=== PATIENT | male | born 1980 | race Caucasian/White ===

== ENCOUNTER 2019-12-13 20:08 | Emergency (ER) | payer BC ==
--- OUTSIDE RECORDS SUMMARY | 2019-12-13 20:09 | XMS REPORT | Continuity of Care Document ---
:1980 Author Organization [facility] t Address [address] [place] [address] Care Team Providers Name Role Phone Unavailable Unavailable Unavailable Problems Condition Condition Condition Status Onset Resolution Last Treating Co mments Source Name Details Category Date Date Treatment Clinician Date Tobacco Tobacco Diagnosis Active [facility] - disorder, disorder, Hesham vlad continuous continuous l [facility] Body mass Body mass Diagnosis Active [facility] index index [facility] - (BMI) of (BMI) of Memori a 40.1 to 40.1 to l 44.9 in 44.9 in [facility] adult [facility] Clinics Wound of Wound of Diagnosis Active [facility] right right [facility] - lower lower Memoria extremity, extremity, l initial initial Outpati encounter encounter ent Clinics HSV HSV Diagnosis Active [facility] (herpes (herpes [facility] - simplex simplex Memoria virus) virus) l infection infection Outp ati ent Clinics Elevated Elevated Diagnosis Active [facility] LFTs LFTs [facility] ent Clinics Delayed Delayed Diagnosis Active [facility] wound wound [facility] - healing healing [facility] l [facility] Essential Essential Diagnosis Active [facility] hypertensi hypertensi Inez kes - on on Memoria l [facility] ent Clinics Allergies, Adverse Reactions, Alerts Allergy Allergy Status Severity Reaction(s) Onset Inactive Treating Comm ents Source Name Type Date Date Clinician Hydrocod Adverse Active Info Not [facility] one-Acet Reaction Available Anitra es - aminophe Mem[facility] n l [facility] ent Clinics Medications Ordered Filled Start Stop Current Ordering Indication Dosage Frequency Signature Comments Components Source Medication Medication Date Date Medication? Clinician (SIG) Name Name Lisinopril Lisinopril Yes Dionicio [address] [facility] ent Clinics Procedures This patient has no known procedures. Encounters Start End Encounter Admission Attending Care Care Encounter Source Date/Time Date/Time Type Type Clinicians Facility Department ID 2019-10-30 2019-10-30 [facility] [id number] [facility] 10:[facility]:00 10:00:00 [place] [employer] [facility] Medicine l Medicine Outpati ent Clinics 2019-08-29 2019-08-29 [facility] [id number] [address] 09:15:00 09:15:00 [place] [employer] [facility] Medicine l Medicine Outpati ent Clinics 2019-08-09 2019-08-09 [facility] [id number] [facility] 10:15:00 10:15:00 [place] [employer] [facility] Medicine l Medicine Outpati ent Clinics 2019-05-12 2019-05-12 [facility] [id number] [address] 12:07:00 12:07:00 t [employer] [facility] Medicine l Medicine Outpati ent Clinics 2019-05-08 2019-05-08 [facility] [id number] 13:30:00 13:30:00 t [employer] [facility] Medicine l Medicine Outpati ent Clinics 2019-02-09 2019-02-09 [facility] [id number] 15:15:00 15:15:00 t [employer] [employer] [facility] Medicine l Medicine Outpati ent Clinics 2019-02-01 2019-02-01 [facility] [id number] [address] 15:11:00 15:11:00 t [employer] [employer] [facility] Medicine l Medicine Outpati ent Clinics 2019-01-05 2019-01-05 [facility] [id number] [facility] 11:15:00 11:15:00 [place] [employer] [facility] Medicine l Medicine Outpati ent Clinics 2018-11-09 2018-11-09 [facility] [id number] [address] 16:00:00 16:00:00 t [employer] [employer] [facility] Medicine l Medicine Outpati ent Clinics 2018-08-08 2018-08-08 [facility] [id number] [address] 15:15:00 15:15:[address] [place] [address] [facility] 2018-07-07 2018-07-07 [facility] [id number] [address] 14:15:00 14:15:00 [employer] [facility] 2018-06-16 2018-06-16 [facility] [id number] 14:15:00 14:15:00 [facility] ent Clinics Results This patient has no known results.
--- OUTSIDE RECORDS SUMMARY | 2019-12-13 20:09 | XMS REPORT ---
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 [id number] 10 MG Orally Once Active 1 tablet a day Results No Known Results Summary Purpose e[employer] Submission
--- NOTE | 2019-12-13 22:05 | ER ---
Nurse's Notes [facility] Name: Kvng Martin Age: 39 yrs Sex: Male : 1980 Arrival Date: 12/13/2019 Time: 20:09 Bed 30 Private MD: Diagnosis: Scalp Mass Presentation: 12/12 20:18 Chief complaint: Patient states: Noticed tender lump to right posterior scalp 3 days ll1 ago. Noticed he can feel his heartbeat in it. No trauma or falls. No N/V/D. No fever. Coronavirus screen: Client denies travel out of the [place] in the last 14 days. At this time, the client does not indicate any symptoms associated with coronavirus-19. Ebola Screen: Patient denies travel to an Ebola-affected area in the 21 days before illness onset. Initial Sepsis Screen: Does the patient meet any 2 criteria? No. Patient's initial sepsis screen is negative. Risk Assessment: Do you want to hurt yourself or someone else? Patient reports no desire to harm self or others. Onset of symptoms was December 11, 2019. 20:18 Method Of Arrival: Ambulatory ll1 20:18 Acuity: CALEB 3 ll1 Historical: - Allergies: 20:22 Codeine; ll1 - PMHx: 20:22 Hypertension; venous ulcer; ll1 - Immunization history:: Flu vaccine is not up to date. - Social history:: Smoking status: Patient reports the use of cigarette tobacco products, smokes one-half pack cigarettes per day, Patient uses alcohol, only on a social basis. Patient/guardian denies using street drugs. Vital Signs: 20:18 BP 130 / 72; Pulse 77; Resp 18; Temp 98.7; Pulse Ox 99% ; Pain 1/10; ll1 ED Course: 20:00 Patient has correct armband on for positive identification. Bed in low position. Call sg light in reach. Pulse ox on. NIBP on. 20:09 Patient arrived in ED. cl3 20:20 Triage completed. ll1 20:22 Arm band placed on. ll1 21:21 Frank Hernandez PA is PHCP. lana 21:21 Colten Elam MD is Attending Physician. luis 21:23 Aaron Mccann RN is Primary Nurse. sg 22:00 No provider procedures requiring assistance completed. IV discontinued, intact, sg bleeding controlled, No redness/swelling at site. Pressure dressing applied. Administered Medications: No medications were administered Outcome: 22:02 Medical screen evaluation completed per provider. Patient declined treatment. sg 22:02 Condition: stable 22:02 Instructed on follow up and referral plans. Demonstrated understanding of instructions. 22:04 Discharge ordered by . lana 22:10 Patient left the ED. sg Signatures: Aaron Mccann RN RN Frank Pennington PA PA jmm Lewis, Charde cl3 Clifton Pineda RN RN ll1
--- NOTE | 2019-12-13 22:05 | EDPHYS ---
Physician Documentation [facility] Name: Kvng Martin Age: 39 yrs Sex: Male : 1980 Arrival Date: 12/13/2019 Time: 20:09 Bed 30 Private MD: ED Physician Colten Elam HPI: 12/12 21:59 This 39 yrs old Male presents to ER via Ambulatory with complaints of Knot On jmm Back Of Head. 21:59 The patient complains of pain to the right occipital area. Onset: The symptoms/episode jmm began/occurred gradually. Associated signs and symptoms: Pertinent negatives: fever, vomiting. This is a 39 year old male with a history of htn that presents to the ED with complaints of swelling to the right parietal scalp. Patient concerned he may have an aneurysm. Denies vomiting, seizure, fever. . Historical: - Allergies: 20:22 Codeine; ll1 - PMHx: 20:22 Hypertension; venous ulcer; ll1 - Immunization history:: Flu vaccine is not up to date. - Social history:: Smoking status: Patient reports the use of cigarette tobacco products, smokes one-half pack cigarettes per day, Patient uses alcohol, only on a social basis. Patient/guardian denies using street drugs. ROS: 21:59 Constitutional: Negative for fever, chills, and weight loss, Cardiovascular: Negative jmm for chest pain, palpitations, and edema, Respiratory: Negative for shortness of breath, cough, wheezing, and pleuritic chest pain. 21:59 Neuro: Positive for headache. 21:59 All other systems are negative. Exam: 21:59 Constitutional: This is a well developed, well nourished patient who is awake, alert, jmm and in no acute distress. 21:59 Eyes: EOMI, no conjunctival erythema appreciated ENT: Moist Mucus Membranes Neck: Trachea midline, Supple Chest/axilla: Normal chest wall appearance and motion. Cardiovascular: Regular rate and rhythm. No edema appreciated Respiratory: Normal respirations, no respiratory distress appreciated Abdomen/GI: Non distended, soft Back: Normal ROM Skin: General appearance color normal MS/ Extremity: Moves all extremities, no obvious deformities appreciated, no edema noted to the lower extremities Neuro: Awake and alert, normal gait Psych: Behavior is normal, Mood is normal, Patient is cooperative and pleasant 21:59 Head/face: cyst like mass appreciated to the right parietal scalp, no surrounding erythema, no induration is appreciated. . Vital Signs: 20:18 BP 130 / 72; Pulse 77; Resp 18; Temp 98.7; Pulse Ox 99% ; Pain 1/10; ll1 MDM: 21:22 Patient medically screened. [facility] 22:04 Data reviewed: vital signs, nurses notes. Refusal of service: The patient/guardian luisosman displays adequate decision making capability and despite a detailed discussion of alternatives, benefits, risks, and consequences refuses: CT Scan. Medical screen evaluation completed. EMTALA emergency medical condition absent. Administered Medications: No medications were administered Disposition: 22:04 Headache. [place] 12/13 17:01 Co-signature as Attending Physician, Colten Elam MD I agree with the assessment and [facility] plan of care. Disposition: 12/13/19 22:04 Discharged to Home as Medical Screen. Impression: Scalp Mass. - Condition is Stable. - Medication Reconciliation Form, Thank You Letter, Antibiotic Education, Prescription Opioid Use form. - Follow up: Private Physician; When: 2 - 3 days; Reason: Recheck today's complaints, Continuance of care, Re-evaluation by your physician. Signatures: Aaron Mccann RN RN Colten Painter MD MD cha Mickail, Joel, PA PA jm Clifton Pineda RN RN ll1 Corrections: (The following items were deleted from the chart) 12/12 22:10 22:04 12/13/2019 22:04 Discharged to Home as Medical Screen. Impression: Scalp Mass. sg Condition is Stable. Forms are Medication Reconciliation Form, Thank You Letter, Antibiotic Education, Prescription Opioid Use. Follow up: Private Physician; When: 2 - 3 days; Reason: Recheck today's complaints, Continuance of care, Re-evaluation by your physician. lana
[2019-12-15 23:55] VITALS: BP 130/72; TEMP 98.7; O2SAT 99
== END 2019-12-13 22:10 | disposition home or self-care (01) ==
LOC: ER 20:08
DX: R22.0 Localized swelling, mass and lump, head (principal); Z88.6 Allergy status to analgesic agent; F17.210 Nicotine dependence, cigarettes, uncomplicated
CPT/HCPCS: 99283

== ENCOUNTER 2020-09-25 13:50 | Emergency (ER) | payer BC ==
--- OUTSIDE RECORDS SUMMARY | 2020-09-25 13:54 | XMS REPORT | Continuity of Care Document ---
:1980 Author Organization [facility] t Address [address] [place] [address] Care Team Providers Name Role Phone Unavailable Unavailable Unavailable Problems This patient has no known problems. Allergies, Adverse Reactions, Alerts Allergy Allergy Status Severity Reaction(s) Onset Inactive Treating Comm ents Source Name Type Date Date Clinician Hydrocod Adverse Active Info Not [facility] one-Acet Reaction Available Anitra es - aminophe [facility] l Outpat[facility] ent Clinics Medications Ordered Filled Start Stop Current Ordering Indication Dosage Frequency Signature Comments Components Source Medication Medication Date Date Medication? Clinician (SIG) Name Name Lisinopril Lisinopril Yes Dionicio [address] [facility] Procedures This patient has no known procedures. Encounters Start End Encounter Admission Attending Care Care Encounter Source Date/Time Date/Time Type Type Clinicians Facility Department ID 2020-09-02 2020-09-02 Outpatient [facility] [id number] [facility] 2020-08-08 2020-08-08 Outpatient [facility] [id number] [facility] 2020 2020 Outpatient [facility] [id number] [facility] 2020-02-01 2020-02-01 [facility] [id number] [facility]00 [facility] l Outpati ent Clinics 2019-10-30 2019-10-30 [facility] [id number] 10:00:00 10:00:00 [place] [employer] [facility] Medicine l Medicine Outpati ent Clinics 2019-08-29 2019-08-29 [facility] [id number] [facility] 09:15:00 09:15:00 t [place] [employer] [facility] Medicine l Medicine Outpati ent Clinics 2019-08-09 2019-08-09 [facility] [id number] [facility] 10:15:00 10:15:00 t [employer] [facility] Medicine l Medicine Outpati ent Clinics 2019-05-12 2019-05-12 [facility] [id number] 12:07:00 12:07:00 t [place] [employer] [facility] Medicine l Medicine Outpati ent Clinics 2019-05-08 2019-05-08 [facility] [id number] [facility] 13[facility]30:00 13:30:00 t [place] [employer] [facility] Medicine l Medicine Outpati ent Clinics 2019-02-09 2019-02-09 [facility] [id number] 15:15:00 15:15:00 t [employer] [facility] [employer] [facility] Medicine l Medicine Outpati ent Clinics 2019-02-01 2019-02-01 [facility] [id number] 15:11:00 15:11:00 t [place] [employer] [facility] Medicine l Medicine Outpati ent Clinics 2019-01-05 2019-01-05 [facility] [id number] 11:15:00 11:15:00 t [place] [employer] [facility] Medicine l Medicine Outpati ent Clinics 2018-11-09 2018-11-09 [facility] [id number] [facility] 16:00:00 16:00:00 t [place] [employer] [facility] Outpati ent Clinics 2018-08-08 2018-08-08 [facility] [id number] 15:15:00 15:15:00 t [employer] [facility] Outpati ent Clinics 2018-07-07 2018-07-07 Outpatient [facility] [id number] 14:15:00 14:15:00 t [employer] [facility] Outpati ent Clinics 2018-06-16 2018-06-16 Outpatient [facility] [id number] [facility] 14:15:00 14:15:00 t [employer] [facility] Results This patient has no known results."
--- NOTE | 2020-09-25 16:40 | RAD REPORT ---
EXAM DESCRIPTION: US - Extremity Venous Uni Ltd - 09/25/2020 4:23 pm CLINICAL HISTORY: Pain;Swelling Leg swelling and edema. COMPARISON: Extremity Venous Uni Ltd dated 09/02/2018 FINDINGS: Left lower extremity venous system was interrogated with Doppler technique. Normal flow, c ompressibility and augmentation was noted. There is no DVT present. IMPRESSION: No evidence of left lower extremity deep venous thrombosis.
--- NOTE | 2020-09-25 16:57 | ER ---
Nurse's Notes [facility] Name: Kvng Martin Age: 40 yrs Sex: Male : 1980 Arrival Date: 09/25/2020 Time: 14:02 Bed 17 Private MD: Diagnosis: Cellulitis of left lower limb Presentation: 09/25 14:03 Chief complaint: Patient states: L leg pain since yesterday. Denies injury. L leg feels ca1 warm to touch, slightly red and tender to touch. Coronavirus screen: Client denies travel out of the [place] in the last 14 days. At this time, the client does not indicate any symptoms associated with coronavirus-19. Ebola Screen: Patient negative for fever greater than or equal to 101.5 degrees Fahrenheit, and additional compatible Ebola Virus Disease symptoms Patient denies exposure to infectious person. Patient denies travel to an Ebola-affected area in the 21 days before illness onset. No symptoms or risks identified at this time. Initial Sepsis Screen: Does the patient meet any 2 criteria? No. Patient's initial sepsis screen is negative. Does the patient have a suspected source of infection? No. Patient's initial sepsis screen is negative. Risk Assessment: Do you want to hurt yourself or someone else? Patient reports no desire to harm self or others. Onset of symptoms was September 25, 2020. 14:03 Method Of Arrival: Ambulatory ca1 14:03 Acuity: CALEB 3 ca1 Historical: - Allergies: 14:05 Codeine; ca1 - PMHx: 14:05 Hypertension; venous ulcer; ca1 - PSHx: 14:05 None; ca1 - Immunization history:: Client reports having NOT received the Covid vaccine. Flu vaccine is not up to date. - Social history:: Smoking status: Patient reports the use of cigarette tobacco products, smokes one-half pack cigarettes per day. Screenin:45 Abuse screen: Denies threats or abuse. Nutritional screening: No deficits noted. ap3 Tuberculosis screening: No symptoms or risk factors identified. Fall Risk None identified. Assessment: 15:44 General: Appears in no apparent distress. comfortable, Behavior is calm, cooperative, ap3 appropriate for age. Pain: Denies pain. Neuro: Level of Consciousness is awake, alert, obeys commands, Oriented to person, place, time, situation. Cardiovascular: Denies chest pain, shortness of breath, Pulses are palpable in right dorsalis pedis artery and left dorsalis pedis artery. Respiratory: Airway is patent Respiratory effort is even, unlabored, Respiratory pattern is regular, symmetrical. GI: No signs and/or symptoms were reported involving the gastrointestinal system. : No signs and/or symptoms were reported regarding the genitourinary system. EENT: No signs and/or symptoms were reported regarding the EENT system. Derm: Skin is pink, warm \T\ dry. Skin temperature is warm Rash noted that is red, on left gaviria. 16:57 Reassessment: Patient and/or family updated on plan of care and expected duration. Pain ap3 level reassessed. Patient is alert, oriented x 3, equal unlabored respirations, skin warm/dry/pink. Vital Signs: 14:03 BP 130 / 79; Pulse 97; Resp 15; Temp 99.1(TE); Pulse Ox 99% on R/A; Weight 151.95 kg ca1 (R); Height 6 ft. 3 in. (190.50 cm) (R); Pain 5/10; 14:03 Body Mass Index 41.87 (151.95 kg, 190.50 cm) ca1 ED Course: 14:02 Patient arrived in ED. ca1 14:05 Triage completed. ca1 14:05 Arm band placed on right wrist. ca1 15:34 Colten Toledo PA is PHCP. cp 15:34 Darío Champion MD is Attending Physician. cp 15:37 Sheela Briseno, DEONTE is Primary Nurse. ap3 15:45 Patient has correct armband on for positive identification. Placed in gown. Bed in low ap3 position. Call light in reach. Side rails up X 1. Pulse ox on. NIBP on. Door closed. Noise minimized. Warm blanket given. 15:46 Patient taken to ultrasound. via wheelchair. ap3 16:22 Patient moved back from ultrasound. ap3 16:23 US Extremity Venous Unilateral Ltd In Process Unspecified. EDMS 16:53 Nurse Practitioner and/or Physician Bi Manager to see patient. ap3 16:57 No provider procedures requiring assistance completed. Patient did not have IV access ap3 during this emergency room visit. Administered Medications: 15:43 Not Given (Patient Refused): Ibuprofen 800 mg PO once ap3 15:43 Not Given (Patient Refused): Tylenol 1000 mg PO once ap3 Outcome: 16:56 Discharge ordered by . jairo 17:06 Discharged to home ambulatory. ap3 17:06 Condition: good 17:06 Discharge instructions given to patient, Instructed on discharge instructions, follow up and referral plans. medication usage, Demonstrated understanding of instructions, follow-up care, medications, Prescriptions given X 2. 17:06 Patient left the ED. ap3 Signatures: Dispatcher [employer] EDMS Colten Toledo PA PA cp Prokisch, Amanda RN RN ap3 Keren Cutler RN RN ca1
--- NOTE | 2020-09-25 16:57 | EDPHYS ---
Physician Documentation [facility] Name: Kvng Martin Age: 40 yrs Sex: Male : 1980 Arrival Date: 09/25/2020 Time: 14:02 Bed 17 Private MD: ED Physician Darío Champion HPI: 09/25 15:40 This 40 yrs old Male presents to ER via Ambulatory with complaints of Leg cp Pain. 15:40 The patient presents with pain, that is acute, swelling, tenderness, erythema. The cp complaints affect the left gaviria. Context: resulted from an unknown cause, the patient can fully bear weight, the patient is able to ambulate, without difficulty. Onset: The symptoms/episode began/occurred yesterday. Associated signs and symptoms: Pertinent positives: swelling, warmth, erythema, Pertinent negatives calf tenderness, fever, injury. Treatment prior to arrival includes: no previous treatment. Historical: - Allergies: 14:05 Codeine; ca1 - PMHx: 14:05 Hypertension; venous ulcer; ca1 - PSHx: 14:05 None; ca1 - Immunization history:: Client reports having NOT received the Covid vaccine. Flu vaccine is not up to date. - Social history:: Smoking status: Patient reports the use of cigarette tobacco products, smokes one-half pack cigarettes per day. ROS: 15:45 Eyes: Negative for injury, pain, redness, and discharge. cp 15:45 Constitutional: Negative for body aches, chills, fever. 15:45 Respiratory: Negative for cough, shortness of breath, wheezing. 15:45 Abdomen/GI: Negative for abdominal pain, nausea, vomiting, and diarrhea. 15:45 Skin: Positive for erythema, swelling, of the left gaviria. 15:45 All other systems are negative. Exam: 15:50 Constitutional: The patient appears in no acute distress, alert, awake, non-toxic, well cp developed, well nourished, obese. 15:50 Head/Face: Normocephalic, atraumatic. cp 15:50 Chest/axilla: Inspection: normal. 15:50 Cardiovascular: Rate: normal. 15:50 Respiratory: the patient does not display signs of respiratory distress, Respirations: normal, no use of accessory muscles. 15:50 Skin: cellulitis, that is mild, well demarcated, on the left gaviria. Vital Signs: 14:03 BP 130 / 79; Pulse 97; Resp 15; Temp 99.1(TE); Pulse Ox 99% on R/A; Weight 151.95 kg ca1 (R); Height 6 ft. 3 in. (190.50 cm) (R); Pain 5/10; 14:03 Body Mass Index 41.87 (151.95 kg, 190.50 cm) ca1 MDM: 15:34 Patient medically screened. cp 16:00 Differential diagnosis: abscess, DVT, cellulitis. cp 16:55 Data reviewed: vital signs, nurses notes, radiologic studies, ultrasound, and as a cp result, I will discharge patient. 16:55 Counseling: I had a detailed discussion with the patient and/or guardian regarding: the cp historical points, exam findings, and any diagnostic results supporting the discharge/admit diagnosis, radiology results, the need for outpatient follow up, a family practitioner, to return to the emergency department if symptoms worsen or persist or if there are any questions or concerns that arise at home. 09/25 15:24 Order name: US Extremity Venous Unilateral Ltd; Complete Time: 16:44 iw Administered Medications: 15:43 Not Given (Patient Refused): Ibuprofen 800 mg PO once ap3 15:43 Not Given (Patient Refused): Tylenol 1000 mg PO once ap3 Disposition: 09/25/20 16:56 Discharged to Home. Impression: Cellulitis of left lower limb. - Condition is Stable. - Discharge Instructions: Cellulitis, Adult. - Prescriptions for Doxycycline Hyclate 100 mg Oral Tablet - take 1 tablet by ORAL route every 12 hours; 20 tablet. Bactrim DS 800- 160 mg Oral Tablet - take 1 tablet by ORAL route every 12 hours for 10 days; 20 tablet. - Medication Reconciliation Form, Thank You Letter, Antibiotic Education, Prescription Opioid Use form. - Follow up: Private Physician; When: 2 - 3 days; Reason: Recheck today's complaints. - Problem is new. - Symptoms are unchanged. Addendum: 09/27/2020 07:11 Co-signature as Attending Physician, Darío Champion MD I agree with the assessment and k dr plan of care. Signatures: Dispatcher [employer] EDMS Darío Champion MD MD [facility] [place] PA PA cp Prokisch, Amanda RN RN ap3 Acob, Keren, RN RN ca1 Corrections: (The following items were deleted from the chart) 09/25 17:06 16:56 09/25/2020 16:56 Discharged to Home. Impression: Cellulitis of left lower limb. ap3 Condition is Stable. Forms are Medication Reconciliation Form, Thank You Letter, Antibiotic Education, Prescription Opioid Use. Follow up: Private Physician; When: 2 - 3 days; Reason: Recheck today's complaints. Problem is new. Symptoms are unchanged. cp 09/26 14:49 14:47 Skin: Positive for erythema, swelling, of the left gaviria, cp cp 14:49 14:47 Constitutional: Negative for body aches, chills, fever, cp cp 14:49 14:47 Respiratory: Negative for cough, shortness of breath, wheezing, cp cp 14:49 14:47 Abdomen/GI: Negative for abdominal pain, nausea, vomiting, and diarrhea, cp cp 14:49 14:47 Eyes: Negative for injury, pain, redness, and discharge, cp cp 14:49 14:47 All other systems are negative, cp cp
[2020-09-25 17:28] VITALS: BP 130/79; TEMP 99.1; O2SAT 99
== END 2020-09-25 17:06 | disposition home or self-care (01) ==
LOC: ER 13:50
DX: L03.116 Cellulitis of left lower limb (principal); I10 Essential (primary) hypertension; F17.210 Nicotine dependence, cigarettes, uncomplicated; Z88.5 Allergy status to narcotic agent
CPT/HCPCS: 93971

== ENCOUNTER 2022-08-17 08:37 | Emergency (ER) | payer BC ==
--- OUTSIDE RECORDS SUMMARY | 2022-08-17 08:40 | XMS REPORT | Continuity of Care Document ---
:1980 Author Organization [facility] t Address [address] [place] [address] [place] [id number] Care Team Providers Name Role Phone Dionicio Villagran Attending Clinician Unavailable Payers Payer Name Policy Type Policy Number Effective Date Expiration Date S arun [employer] 6 [id number] 2021 Common Spiri t [employer] of 00:00:00 [facility] Blue Cross C1 [id number] 2017 Common Spiri t Blue [employer] of 00:00:00 [facility] Problems Condition Condition Condition Status Onset Resolution Last Treating Co mments Source Name Details Category Date Date Treatment Clinician Date [id number] Essential Problem Comm on hypertensi Spirit on - [facility] [id number] Erectile Problem Comm on dysfunctio Spirit n, - [facility] erectile [facility] dysfunctio Medica n type [place] [id number] Tobacco Problem Commo n use Spirit disorder, - [facility] continuous [facility] [id number] Body mass Problem Com mon index Spirit (BMI) of - [facility] [facility]9 in [facility] [id number] Morbid Problem Common obesity Spirit due to - [facility] excess [facility] calories [facility] Allergies, Adverse Reactions, Alerts Allergy Allergy Status Severity Reaction(s) Onset Inactive Treating Comm ents Source Name Type Date Date Clinician acetamin acetamin Active Unknown Commo n ophen / ophen / Spirit hydrocod hydrocod - [facility] one one [facility] Social History Social Habit Start Date Stop Date Quantity Comments Source History of Tobacco Current Smoker Co mmon Spirit - [facility] Use [facility] Sex Assigned At Com mon [facility] Smoking Status Start Date Stop Date Source Current Smoker 2022-03-20 00:00:00 Common Spiri t - [facility] Medications Ordered Filled Start Stop Current Ordering Indication Dosage Frequency Signature Comments Components Source Medication Medication Date Date Medication? Clinician (SIG) Name Name Kamini Suárez 2018-04 No 40mg Common (Triamcinol (Triamcinol 0-31 S pirit one) one) 00:00: - [facility] 00 [facility] Kamini Suárez 2018-04 No 40mg Common (Triamcinol (Triamcinol 0-31 S pirit one) one) 00:00: - [facility] Kamini Suárez 2018-04 No 40mg Common (Triamcinol (Triamcinol 0-31 S pirit one) one) 00:00: - [facility] 00 [facility] Kamini Suárez 2018-04 No 40mg Common (Triamcinol (Triamcinol 0-31 S pirit one) one) 00:00: - [facility] 00 [facility] Kamini Suárez 2018-04 No 40mg Common (Triamcinol (Triamcinol 0-31 S pirit one) one) 00:00: - [facility] 00 [facility] Lisinopril Lisinopril Yes Dionicio 1 tablet Common Villagran [facility] Lisinopril Lisinopril No 1{table QD Lisinopril 10 MG 10 MG t} 10 MG Sildenafil Sildenafil No 1{table QD Sildenafil Citrate 50 Citrate 50 t_as_ne Citrate 50 MG MG eded} MG One A Day One A Day No One A Day Mens Mens Mens [facility] Sildenafil Sildenafil No 1{table QD Sildenafil Citrate 50 Citrate 50 t_as_ne Citrate 50 MG MG eded} MG Lisinopril Lisinopril No 1{table QD Lisinopril 10 MG 10 MG t} 10 MG One A Day One A Day No One A Day Mens Mens Mens [facility] Lisinopril Lisinopril No 1{table QD Lisinopril 10 MG 10 MG t} 10 MG Sildenafil Sildenafil No 1{table QD Sildenafil Citrate 50 Citrate 50 t_as_ne Citrate 50 MG MG eded} MG One A Day One A Day No One A Day Mens Mens Mens [facility] Sildenafil Sildenafil No 1{table QD Sildenafil Citrate 50 Citrate 50 t_as_ne Citrate 50 MG MG eded} MG Lisinopril Lisinopril No 1{table QD Lisinopril 10 MG 10 MG t} 10 MG Lisinopril Lisinopril No Lisinopril 10 MG 10 MG 10 MG Sildenafil Sildenafil No 1{table QD Sildenafil Citrate 50 Citrate 50 t_as_ne Citrate 50 MG MG eded} MG Lisinopril Lisinopril No Lisinopril 10 MG 10 MG 10 MG Lisinopril Lisinopril No 1{table QD Lisinopril 10 MG 10 MG t} 10 MG One A Day One A Day No One A Day Mens Mens Mens [facility] Sildenafil Sildenafil No 1{table QD Sildenafil Citrate 50 Citrate 50 t_as_ne Citrate 50 MG MG eded} MG Lisinopril Lisinopril No Lisinopril 10 MG 10 MG 10 MG Vital Signs Vital Name Observation Time Observation Value Comments Source height 2022-03-26 15:30:00 74 [in_i] [facility] weight 2022-03-26 15:30:00 370 [lb_av] Common [facility] temperature 2022-03-26 15:30:00 97 [degF] Common S pirit [facility] bmi 2022-03-26 15:30:00 47.5 kg/m2 Common [facility] blood pressure 2022-03-26 15:30:00 135 mm[Hg] Common Spirit - systolic [facility] blood pressure 2022-03-26 15:30:00 72 mm[Hg] Common Spirit - diastolic [facility] height 2021-11-26 14:10:00 74 [in_i] Common [facility] weight 2021-11-26 14:10:00 370 [lb_av] Common S pirit [facility] temperature 2021-11-26 14:10:00 96.9 [degF] Common S pirit [facility] bmi 2021-11-26 14:10:00 47.5 kg/m2 Common S [facility] oximetry 2021-11-26 14:10:00 97 % Common S pirit [facility] respiratory rate 2021-11-26 14:10:00 16 /min Comm on [facility] blood pressure 2021-11-26 14:10:00 137 mm[Hg] Common [facility] - systolic [facility] blood pressure 2021-11-26 14:10:00 78 mm[Hg] Common Spirit - diastolic [facility] height 2021-08-27 13:50:00 75 [in_i] Common [facility] weight 2021-08-27 13:50:00 373.6 [lb_av] Common [facility] temperature 2021-08-27 13:50:00 97.2 [degF] [facility] 2021-08-27 13:50:00 46.69 kg/m2 [facility] S [facility] oximetry 2021-08-27 13:50:00 95 % Common S [facility] respiratory rate 2021-08-27 13:50:00 17 /min Comm on [facility] blood pressure 2021-08-27 13:50:00 139 mm[Hg] Common Spirit - systolic [facility] blood pressure 2021-08-27 13:50:00 80 mm[Hg] Common Spirit - diastolic [facility] height 2021-08-07 08:50:00 75 [in_i] [facility] weight 2021-08-07 08:50:00 367.2 [lb_av] Common [facility] temperature 2021-08-07 08:50:00 97.3 [degF] Common [facility] bmi 2021-08-07 08:50:00 45.89 kg/m2 [facility] oximetry 2021-08-07 08:50:00 100 % [facility] respiratory rate 2021-08-07 08:50:00 18 /min Comm on [facility] blood pressure 2021-08-07 08:50:00 138 mm[Hg] Common [facility] - systolic [facility] blood pressure 2021-08-07 08:50:00 70 mm[Hg] Common [facility] - diastolic [facility] height 2021-03-05 08:00:00 75 [in_i] [facility] weight 2021-03-05 08:00:00 348 [lb_av] [facility] temperature 2021-03-05 08:00:00 98 [degF] Common [facility] bmi 2021-03-05 08:00:00 43.49 kg/m2 [facility] blood pressure 2021-03-05 08:00:00 125 mm[Hg] Common [facility] - systolic [facility] blood pressure 2021-03-05 08:00:00 72 mm[Hg] Common [facility] - diastolic [facility] Procedures This patient has no known procedures. Encounters Start End Encounter Admission Attending Care Care Encounter Source Date/Time Date/Time Type Type Clinicians Facility Department ID 2022-07-24 Outpatient Villagran, STLMLC STLC [id number] Common 09:48:01 Dionicio [id number] [facility] 2022-03-24 Outpatient Villagran, STLMLC STLC [id number] Common 15:21:00 Dionicio [id number] [facility] 2021-05-07 Outpatient Villagran, STLMLC STLC [id number] Common 14:16:53 Dionicio [id number] [facility] 2021-05-07 Outpatient Villagran, STLMLC STLC [id number] Common 13:29:03 Dionicio [id number] [facility] 2021-05-07 Outpatient Villagran, STLMLC STLMLC [id number] Common 12:55:27 Dionicio [id number] [facility] 2021-05-07 Outpatient Villagran, STLMLC STLMLC [id number] Common 12:54:16 Dionicio [id number] [facility] 2021-05-07 Outpatient Villagran, STLMLC STLMLC [id number] Common 12:25:23 Dionicio [id number] [facility] 2021-05-07 Outpatient Villagran, STLMLC STLMLC [id number] Common 12:23:40 Dionicio [facility] 2021-05-07 Outpatient Villagran, STLMLC STLMLC [id number] Common 11:57:55 Dionicio [id number] [facility] 2021-05-07 Outpatient Villagran, STLMLC STLMLC [id number] Common 11:57:31 Dionicio [id number] [facility] 2021-05-07 Outpatient Villagran, STLMLC STLMLC [id number] Common 11:55:38 Dionicio [id number] [facility] 2021-05-07 Outpatient Villagran, STLMLC STLMLC [id number] Common 11:19:27 Dionicio [id number] [facility] 2022-03-26 2022-03-26 OFFICE STLMLC STLMLC [id number] Co mmon 00:00:00 00:00:00 VISIT EST Spir it PT LEVEL 3 [facility] 2022-03-03 2022-03-03 (TEL) STLMLC STLMLC [id number] Co mmon 00:00:00 00:00:00 [facility] 2021-11-26 2021-11-26 OFFICE STLMLC STLMLC [id number] Co mmon 00:00:00 00:00:00 VISIT EST Spir it PT LEVEL 3 [facility] 2021-08-27 2021-08-27 OFFICE STLMLC STLMLC [id number] Co mmon 00:00:00 00:00:00 VISIT EST Spir it PT LEVEL 3 [facility] 2021-08-07 2021-08-07 PREV VISIT STLMLC STLMLC [id number] Common 00:00:00 00:00:00 EST AGE Kp 40-64 - [facility] 2021-03-05 2021-03-05 OFFICE STLMLC STLMLC [id number] Co mmon 00:00:00 00:00:00 VISIT EST Spir it PT LEVEL 3 [facility] 2020-11-15 2020-11-15 Outpatient STLMLC STLMLC [id number] Common 00:00:00 00:00:00 [facility] 2020-11-06 2020-11-06 Outpatient STLMLC STLMLC [id number] Common 00:00:00 00:00:00 [facility] 2020-09-25 2020-09-25 Outpatient STLMLC STLMLC [id number] Common 00:00:00 00:00:00 [facility] 2020-09-02 2020-09-02 Outpatient STLMLC STLMLC [id number] Common 00:00:00 00:00:00 [facility] 2020-08-08 2020-08-08 Outpatient STLMLC STLMLC [id number] Common 00:00:00 00:00:00 [facility] 2020 2020 Outpatient STLMLC STLMLC [id number] Common 00:00:00 00:00:00 [facility] 2020-02-01 2020-02-01 Outpatient STLMLC STLMLC [id number] Common 00:00:00 00:00:00 [facility] 2019-10-30 2019-10-30 [id number] Common 10:00:00 10:00:[address] [facility] 2019-08-29 2019-08-29 [facility] [id number] Common 09:15:00 09:15:[address] [facility] 2019-08-09 2019-08-09 [facility] [id number] Common 10:15:00 10:15:00 [place] [address] [place] [address] [facility] 2019-05-12 2019-05-12 [facility] [id number] Common 12:07:00 12:07:00 [place] [address] [place] [address] [facility] 2019-05-08 2019-05-08 [facility] [id number] Common 13:30:00 13:30:00 [place] [address] [place] [address] [facility] 2019-02-09 2019-02-09 [facility] [id number] Common 15:15:00 15:15:00 [place] [address] [place] [address] [facility] 2019-02-01 2019-02-01 [facility] [id number] Common 15:11:00 15:11:00 [place] [address] [place] [address] [facility] 2019-01-05 2019-01-05 [facility] [id number] Common 11:15:00 11:15:00 [place] [address] [place] [address] [facility] 2018-11-09 2018-11-09 [facility] [id number] Common 16:00:00 16:00:00 [place] [address] [place] [address] [facility] 2018-08-08 2018-08-08 [facility] [id number] Common 15:15:00 15:15:00 [place] [address] [facility] 2018-07-07 2018-07-07 [facility] [id number] Common 14:15:00 14:15:00 [place] [address] [address] [facility] 2018-06-16 2018-06-16 [facility] [id number] Common 14:15:00 14:15:00 [place] [address] [facility] Results This patient has no known results.
--- NOTE | 2022-08-17 09:43 | RAD REPORT ---
EXAM DESCRIPTION: CT - Chest For Pe Angio - 08/17/2022 9:33 am CLINICAL HISTORY: Chest pain. HEMOPTYSIS COMPARISON: No comparisons TECHNIQUE: CT angiogram of the pulmonary arteries was performed with MIP. All CT scans are performed using dose optimization technique as appropriate and may include automated exposure control or mA/KV adjustment according to patient size. FINDINGS: No evidence of pulmonary thromboembolism. No acute aortic finding demonstrated. The lungs are clear. No significant pericardial or pleural fluid. No concerning bony finding. IMPRESSION: No evidence of pulmonary thromboembolism. No acute lung findings.
--- NOTE | 2022-08-17 09:47 | ER ---
Nurse's Notes [facility] Name: Kvng Martin Age: 42 yrs Sex: Male : 1980 Arrival Date: 08/17/2022 Time: 08:37 Bed 5 Private MD: Dionicio Villagran Diagnosis: Hemoptysis Presentation: 08/17 08:46 Chief complaint: Patient states: he has had a cough since May. He has seen his PCP ap3 virtually for it, and has been treated with steroids and antibiotics but the cough has continued to return. patient reports that this morning there was what appeared to be blood colored streaks in his sputum. Coronavirus screen: At this time, the client does not indicate any symptoms associated with coronavirus-19. Ebola Screen: No symptoms or risks identified at this time. Initial Sepsis Screen: Does the patient meet any 2 criteria? No. Patient's initial sepsis screen is negative. Does the patient have a suspected source of infection? Yes: Productive cough/pneumonia. Risk Assessment: Do you want to hurt yourself or someone else? Patient reports no desire to harm self or others. Onset of symptoms was May 2022. 08:46 Method Of Arrival: Ambulatory ap3 08:51 Acuity: CALEB 3 ap3 Triage Assessment: 08:49 General: Appears in no apparent distress. Behavior is calm, cooperative, appropriate ap3 for age. Pain: Denies pain. Neuro: Level of Consciousness is awake, alert, obeys commands, Oriented to person, place, time, situation. Cardiovascular: Patient's skin is warm and dry. Respiratory: Reports cough that is productive, Airway is patent Respiratory effort is even, unlabored, Respiratory pattern is regular, symmetrical, Parent/caregiver reports the patient having blood colored streaks in his sputum that started this morning. Historical: - Allergies: 08:48 Codeine; ap3 - Home Meds: 08:48 losartan oral [Active]; ap3 - PMHx: 08:48 Hypertension; venous ulcer; ap3 - Social history:: Smoking status: Patient/guardian denies using tobacco, Stopped _ months ago 2. Screenin:50 [facility] ED Fall Risk Assessment (Adult) History of falling in the last 3 months, ap3 including since admission No falls in past 3 months (0 pts). Abuse screen: Denies threats or abuse. Nutritional screening: No deficits noted. Tuberculosis screening: No symptoms or risk factors identified. Assessment: 09:55 Reassessment: Patient is alert, oriented x 3, equal unlabored respirations, skin aa5 warm/dry/pink. Vital Signs: 08:46 Pulse 84; Resp 17; Temp 98.8; Pulse Ox 98% ; Weight 167.83 kg; Height 6 ft. 3 in. ; ap3 08:50 BP 148 / 97; ap3 08:46 Body Mass Index 46.25 (167.83 kg, 190.5 cm) ap3 ED Course: 08:42 Patient arrived in ED. am2 08:42 Dionicio Villagran DO is Private Physician. am2 08:43 Frank Hernandez [facility] jmm 08:43 Darío Champion MD is Attending Physician. jmm 08:48 Triage completed. ap3 08:50 Arm band placed on right wrist. ap3 08:56 Juanito Mcnamara, DEONTE is Primary Nurse. bp 09:11 Inserted saline lock: 20 gauge in right forearm, using aseptic technique. Blood bp collected. 09:35 CT Chest For PE Angio In Process Unspecified. EDMS 09:47 Dionicio Villagran DO is Referral Physician. [facility] 09:55 No provider procedures requiring assistance completed. IV discontinued, intact, aa5 bleeding controlled, No redness/swelling at site. Pressure dressing applied. Administered Medications: No medications were administered Medication: 08:50 VIS not applicable for this client. ap3 Outcome: 09:47 Discharge ordered by MD. [facility] 09:55 Discharged to home ambulatory, with family. aa5 09:55 Condition: stable 09:55 Discharge instructions given to patient, Instructed on discharge instructions, follow up and referral plans. medication usage, Demonstrated understanding of instructions, follow-up care, medications, Prescriptions given X 2. 09:56 Patient left the ED. aa5 Signatures: Dispatcher [employer] EDMS Frank Hernandez PA PA jmm Calderon, Audri RN RN aa5 Sheela Segovia am2 Juanito Mcnamara, DEONTE RN Sheela Salmeron RN RN ap3 Corrections: (The following items were deleted from the chart) 08:51 08:46 Acuity: CALEB 4 ap3 ap3
--- NOTE | 2022-08-17 09:47 | EDPHYS ---
Physician Documentation [facility] Name: Kvng Martin Age: 42 yrs Sex: Male : 1980 Arrival Date: 08/17/2022 Time: 08:37 Bed 5 Private MD: Tyshawn [facility] ED Physician Darío Champion HPI: 08/17 08:54 This 42 yrs old Male presents to ER via Ambulatory with complaints of spitting up blood.jmm 08:54 The patient or guardian reports cough, with productive sputum, that is bloody. Onset: jmm The symptoms/episode began/occurred today. This is a 42 year old male with a history of htn that presents to the ED with complaints of hemoptysis which he noticed this morning. Patient states he has had cough, congestion since May. Patient took amoxicillin without relief of symptoms. . Historical: - Allergies: 08:48 Codeine; ap3 - Home Meds: 08:48 losartan oral [Active]; ap3 - PMHx: 08:48 Hypertension; venous ulcer; ap3 - Social history:: Smoking status: Patient/guardian denies using tobacco, Stopped _ months ago 2. ROS: 08:54 Constitutional: Negative for fever, chills, and weight loss, Cardiovascular: Negative jmm for chest pain, palpitations, and edema. 08:54 Abdomen/GI: Negative for abdominal pain, nausea, vomiting, diarrhea, and constipation, Back: Negative for injury and pain. 08:54 Respiratory: Positive for cough, hemoptysis. 08:54 All other systems are negative. Exam: 08:54 Constitutional: This is a well developed, well nourished patient who is awake, alert, jmm and in no acute distress. Head/Face: atraumatic. Eyes: EOMI, no conjunctival erythema appreciated ENT: Moist Mucus Membranes Neck: Trachea midline, Supple Chest/axilla: Normal chest wall appearance and motion. Cardiovascular: Regular rate and rhythm. No edema appreciated Respiratory: Normal respirations, no respiratory distress appreciated Abdomen/GI: Non distended Back: Normal ROM Skin: General appearance color normal MS/ Extremity: Moves all extremities, no obvious deformities appreciated, no edema noted to the lower extremities Neuro: Awake and alert Psych: Behavior is normal, Mood is normal, Patient is cooperative and pleasant Vital Signs: 08:46 Pulse 84; Resp 17; Temp 98.8; Pulse Ox 98% ; Weight 167.83 kg; Height 6 ft. 3 in. ; ap3 08:50 BP 148 / 97; ap3 08:46 Body Mass Index 46.25 (167.83 kg, 190.5 cm) ap3 MDM: 08:54 Patient medically screened. [facility] 10:32 Differential diagnosis: bronchitis, pneumonia. Data reviewed: vital signs, nurses jm notes, lab test result(s), radiologic studies, CT scan. Counseling: I had a detailed discussion with the patient and/or guardian regarding: the historical points, exam findings, and any diagnostic results supporting the discharge/admit diagnosis, lab results, radiology results, the need for outpatient follow up, to return to the emergency department if symptoms worsen or persist or if there are any questions or concerns that arise at home. 08/17 09:45 Order name: CREATININE WHOLE BLOOD; Complete Time: 09:46 [facility] 08/17 08:54 Order name: CT Chest For PE Angio; Complete Time: 09:46 [facility] Administered Medications: No medications were administered Disposition: 14:13 Co-signature as Attending Physician, Darío Champion MD I agree with the assessment and kdr plan of care. Disposition Summary: 08/17/22 09:47 Discharge Ordered Location: Home [facility] Condition: Stable [facility] Diagnosis - Hemoptysis [facility] Followup: [facility] - With: Dionicio Villagran, DO - When: 2 - 3 days - Reason: Recheck today's complaints, Continuance of care, Re-evaluation by your physician Discharge Instructions: - Discharge Summary Sheet [facility] - Hemoptysis [facility] - Cough, Adult [facility] Forms: - Medication Reconciliation Form [facility] - Thank You Letter [facility] - Antibiotic Education [facility] - Prescription Opioid Use [facility] Prescriptions: - Prednisone 20 mg Oral Tablet - take 3 tablets by ORAL route once daily for 5 days; 15 tablet; Refills: 0, jm Product Selection Permitted - Zithromax Z-Cain 250 mg Oral Tablet - take 1 tablet by ORAL route as directed for 5 days Day 1 - take two (2) tablets [facility] one time. Day 2, 3, 4 , 5 take one (1) tablet once daily.; 6 tablet; Refills: 0, Product Selection Permitted Signatures: [facility] Dar[facility] Gallegos MD MD kdr Frank Hernandez PA PA jmm Sheela Briseno, RN RN ap3
[2022-08-17 10:05] VITALS: TEMP 98.8; O2SAT 98
[2022-08-17 10:15] VITALS: BP 148/97
== END 2022-08-17 09:56 | disposition home or self-care (01) ==
LOC: ER 08:37
DX: R04.2 Hemoptysis (principal); Z88.5 Allergy status to narcotic agent
CPT/HCPCS: 82565; 71275; 99284; Q9967